=== PATIENT | male | born 1935 | race Hispanic/Latino ===

== ENCOUNTER 2018-01-23 13:43 | Emergency (ER) | payer MEDICARE, OTHER ==
[~2018-01-23 13:43] MED LIST: AMLO5TAB2 PO; ASPI-555 PO; CLOP75TA14 PO; METO-391 PO; SIMV20TA6 PO
[2018-01-23] MEDS ORDERED: IOPAMIDOL-370 100 ML VIAL IV ONE (13:54)
[2018-01-23 14:12] LABS: BASOPHILS % (AUTO) 4.1 % (0.0-5.0); EOSINOPHILS % (AUTO) 3.5 % (0.0-8.0); LYMPHOCYTES % (AUTO) 16.3 % (21.0-51.0); MEAN CORPUSCULAR HEMOGLOBIN 33.9 pg (27.0-33.0); MEAN CORPUSCULAR HGB CONC 34.5 g/dL (32.0-36.0); MEAN CORPUSCULAR VOLUME 98.3 fL (79-99); NEUTROPHILS % (AUTO) 68.1 % (40.0-77.0); NUCLEATED RED BLOOD CELLS 0.1 % (0.0-0.19); PLATELET COUNT (AUTO) 211 K/uL (130-400); RED BLOOD CELL COUNT(AUTO) 4.68 MIL/uL (4.50-6.20); RED CELL DISTRIBUTION WIDTH 13.6 % (11.0-15.5); WHITE BLOOD COUNT (AUTO) 8.5 K/uL (4.8-10.8)
[2018-01-23 14:16] LABS: INR 0.98 (0.85-1.15); PARTIAL THROMBOPLASTIN TIME 25.2 SEC (26.3-35.5); PROTHROMBIN TIME 10.3 SEC (9.6-11.6)
[2018-01-23 14:17] LABS: POTASSIUM 3.7 mmol/L (3.5-5.1)
[2018-01-23 14:22] LABS: ALBUMIN 3.4 g/dL (3.5-5.0); BILIRUBIN,TOTAL 0.5 mg/dL (0.2-1.0); TOTAL PROTEIN, SERUM 7.8 g/dL (6.0-8.3)
[2018-01-23] MEDS ORDERED: MORPHINE SULFATE 2 MG/ML 1ML SYG ONE (14:58)
[2018-01-23] MEDS ORDERED: ONDANSETRON HCL 4 MG/2 ML VIAL ONE (14:58)
[2018-01-23] MEDS ORDERED: SODIUM CHLORIDE 0.9% 500ML 500 ML IV ONE (14:59)
[2018-01-23 15:27] LABS: APPEARANCE,URINE Clear (CLEAR); BILIRUBIN,URINE Negative (NEGATIVE); COLOR,URINE Yellow (YELLOW); GLUCOSE, URINE (UA) Negative (NEGATIVE); KETONES,URINE Negative (NEGATIVE); LEUKOCYTE ESTERASE ,URINE Negative (NEGATIVE); NITRATE,URINE Negative (NEGATIVE); OCCULT BLOOD,URINE Small (NEGATIVE); PH,URINE 7.5 (5.0-8.0); PROTEIN,URINE Negative (NEGATIVE); UROBILINOGEN,URINE 0.2 mg/dL (0.2-1.0)
[2018-01-23 15:44] LABS: BACTERIA,URINE Rare /HPF (None Seen); WBC,URINE 0-1 /HPF (0-1)
== END 2018-01-23 16:57 | disposition home or self-care (01) ==
LOC: EDH 13:43
DX: S20.212A Contusion of left front wall of thorax, initial encounter (principal); S10.83XA Contusion of other specified part of neck, initial encounter; S50.02XA Contusion of left elbow, initial encounter; S80.02XA Contusion of left knee, initial encounter; S80.12XA Contusion of left lower leg, initial encounter; V59.49XA Driver of pick-up truck or van injured in collision with other motor vehicles in traffic accident, initial encounter; Y93.89 Activity, other specified; Y92.89 Other specified places as the place of occurrence of the external cause; Y99.8 Other external cause status
CPT/HCPCS: 36415; 70450; 71260; 72125; 73080; 73562; 73590; 74177; 80053; 81001; 84484; 85025; 85610; 85730; 93005; 96374; 96375; 99285; J2405; J7040; Q9967

== ENCOUNTER → 2018-08-03 | Outpatient (CLI) | payer MEDICARE ==
[~2018-08-03] MED LIST changes: -AMLO5TAB2 PO; +AMLO5TAB7 PO
== END | disposition home or self-care (01) ==
LOC: SHCH 09:40
PROVIDERS: ATTEND Internal Medicine Cardiovascular Disease
DX: I65.23 Occlusion and stenosis of bilateral carotid arteries (principal)
CPT/HCPCS: 93880

== ENCOUNTER 2019-02-14 08:42 | Emergency (ER) | payer MEDICARE ==
[~2019-02-14 08:42] MED LIST changes: -AMLO5TAB7 PO; +AMLO5TAB9 PO
[2019-02-14] MEDS ORDERED: ASPIRIN 325 MG TABLET ONE (09:02)
[2019-02-14 09:03] LABS: BASOPHILS % (AUTO) 0.7 % (0.0-5.0); EOSINOPHILS % (AUTO) 3.7 % (0.0-8.0); HEMATOCRIT 46.2 % (42-54); LYMPHOCYTES % (AUTO) 30.4 % (21.0-51.0); MEAN CORPUSCULAR HEMOGLOBIN 33.8 pg (27.0-33.0); MEAN CORPUSCULAR VOLUME 99.3 fL (79-99); MONOCYTES % (AUTO) 10.8 % (3.0-13.0); NEUTROPHILS % (AUTO) 54.4 % (40.0-77.0); NUCLEATED RED BLOOD CELLS 0.1 % (0.0-0.19); PLATELET COUNT (AUTO) 192 K/uL (130-400); RED BLOOD CELL COUNT(AUTO) 4.65 MIL/uL (4.50-6.20); RED CELL DISTRIBUTION WIDTH 13.7 % (11.0-15.5); WHITE BLOOD COUNT (AUTO) 5.8 K/uL (4.8-10.8)
[2019-02-14] MEDS ORDERED: NITROGLYCERIN 1GM/1 INCH PACKET TD ONE (09:04)
[2019-02-14 09:17] LABS: CREATININE 0.9 mg/dL (0.5-1.5); POTASSIUM 4.1 mmol/L (3.5-5.1)
[2019-02-14 09:20] LABS: INR 0.98 (0.85-1.15); PARTIAL THROMBOPLASTIN TIME 27.3 SEC (26.3-35.5); PROTHROMBIN TIME 10.3 SEC (9.6-11.6)
[2019-02-14 09:35] LABS: ALBUMIN 3.7 g/dL (3.5-5.0); BILIRUBIN,TOTAL 0.9 mg/dL (0.2-1.0); TOTAL PROTEIN, SERUM 7.8 g/dL (6.0-8.3)
[2019-02-14 12:04] LABS: APPEARANCE,URINE Clear (CLEAR); BILIRUBIN,URINE Negative (NEGATIVE); COLOR,URINE Yellow (YELLOW); GLUCOSE, URINE (UA) Negative (NEGATIVE); KETONES,URINE Negative (NEGATIVE); LEUKOCYTE ESTERASE ,URINE Negative (NEGATIVE); NITRATE,URINE Negative (NEGATIVE); OCCULT BLOOD,URINE Negative (NEGATIVE); PROTEIN,URINE Negative (NEGATIVE); UROBILINOGEN,URINE 0.2 mg/dL (0.2-1.0)
== END 2019-02-14 14:10 | disposition home or self-care (01) ==
LOC: EDH 08:42
DX: M25.512 Pain in left shoulder (principal); I10 Essential (primary) hypertension; I25.2 Old myocardial infarction; E78.00 Pure hypercholesterolemia, unspecified; Z95.1 Presence of aortocoronary bypass graft
CPT/HCPCS: 36415; 71045; 80053; 81003; 82550; 83874; 84484; 85025; 85610; 85730; 93005

== ENCOUNTER → 2020-04-11 | Outpatient (CLI) | payer MEDICARE ==
[~2020-04-11] MED LIST changes: -ASPI-555 PO; +ASPI-556 PO; +SIMV-43 PO; -SIMV20TA6 PO
== END | disposition home or self-care (01) ==
LOC: SHCH 09:43
PROVIDERS: ATTEND Internal Medicine Cardiovascular Disease
DX: I10 Essential (primary) hypertension (principal); I65.23 Occlusion and stenosis of bilateral carotid arteries
CPT/HCPCS: 93306; 93880

== ENCOUNTER → 2020-11-29 | Outpatient (CLI) | payer MEDICARE ==
[~2020-11-29] MED LIST changes: +AMLO-257 PO; -AMLO5TAB9 PO
== END | disposition home or self-care (01) ==
LOC: RAH 10:07
PROVIDERS: ATTEND Urology
DX: N40.0 Benign prostatic hyperplasia without lower urinary tract symptoms (principal); R39.198 Other difficulties with micturition; R31.29 Other microscopic hematuria
CPT/HCPCS: 76770

== ENCOUNTER → 2021-03-18 | Outpatient (CLI) | payer MEDICARE | END | disposition home or self-care (01) | LOC: SHCH 11:20 | PROVIDERS: ATTEND Internal Medicine Cardiovascular Disease | DX: I65.23 Occlusion and stenosis of bilateral carotid arteries (principal) | CPT/HCPCS: 93880 ==

== ENCOUNTER 2022-03-19 03:14 | Observation (INO) | payer MEDICARE ==
[~2022-03-19] VITALS: Ht 170.2 cm; Wt 79.0 kg
[2022-03-19 03:57] LABS: BASOPHILS % (AUTO) 0.6 % (0.0-5.0); EOSINOPHILS % (AUTO) 4.4 % (0.0-8.0); HEMATOCRIT 43.3 % (42-54); LYMPHOCYTES % (AUTO) 34.3 % (21.0-51.0); MEAN CORPUSCULAR HEMOGLOBIN 33.1 pg (27.0-33.0); MEAN CORPUSCULAR HGB CONC 34.2 g/dL (32.0-36.0); MEAN CORPUSCULAR VOLUME 96.9 fL (79-99); MONOCYTES % (AUTO) 13.1 % (3.0-13.0); NEUTROPHILS % (AUTO) 47.2 % (40.0-77.0); PLATELET COUNT (AUTO) 163 K/uL (130-400); RED BLOOD CELL COUNT(AUTO) 4.47 MIL/uL (4.50-6.20); RED CELL DISTRIBUTION WIDTH 13.8 % (11.0-15.5)
[2022-03-19 04:05] LABS: CREATININE 0.9 mg/dL (0.5-1.5)
[2022-03-19 04:06] LABS: INR 0.94 (0.85-1.15); PROTHROMBIN TIME 10.3 SEC (9.6-11.6)
[2022-03-19 04:08] LABS: PARTIAL THROMBOPLASTIN TIME 26.2 SEC (26.3-35.5)
[2022-03-19 04:09] LABS: ALBUMIN 3.2 g/dL (3.5-5.0); MAGNESIUM 2.1 mg/dL (1.80-2.40); TOTAL PROTEIN, SERUM 7.5 g/dL (6.0-8.3)
[2022-03-19 04:17] LABS: B-TYPE NATRIURETIC PEPTIDE 60 pg/mL (0-100)
[2022-03-19] MEDS ORDERED: ASPIRIN 325MG TAB PO ONE (04:30)
[2022-03-19] MEDS ORDERED: NITROGLYCERIN 1GM OINT 1 INCH/1GM TD ONE (04:30)
[2022-03-19] MEDS ORDERED: ONDANSETRON 4MG INJ IV PRN (05:30)
[2022-03-19] MEDS ORDERED: NITROGLYCERIN 0.4 MG SL TAB SL PRN (05:30)
[2022-03-19] MEDS ORDERED: CYCLOBENZAPRINE HCL 10 MG TABLET PO ONE (05:30)
[2022-03-19] MEDS ORDERED: MORPHINE 4 MG SYG IV PRN (05:30)
[2022-03-19] MEDS ORDERED: HYDROCODONE/ACETAMINOPHEN 5/325 MG TAB PO PRN (05:30)
[2022-03-19] MEDS ORDERED: HYDROCODONE/ACETAMINOPHEN 5/325 MG TAB PO ONE (05:30)
[2022-03-19] MEDS: FAMOTIDINE 20MG TAB PO SCH (08:10)
[2022-03-19] MEDS: ENOXAPARIN SODIUM 40 MG/0.4 ML SYRINGE SQ SCH (08:11)
[2022-03-19] MEDS ORDERED: ASPIRIN 81MG CHEW TAB PO SCH (09:00)
[2022-03-19] MEDS: LOSARTAN 25 MG TABLET PO SCH (09:32)
[2022-03-19 10:00] VITALS: BP 145/64
[2022-03-19 11:30] VITALS: BP 139/61
[2022-03-19] MEDS ORDERED: ACETAMINOPHEN 500 MG TABLET PO PRN (14:00)
[2022-03-19 17:58] VITALS: BP 130/56
[2022-03-19] MEDS ORDERED: FEXO180T94 PO (18:20)
[2022-03-19 20:00] VITALS: BP 133/55
[2022-03-19] MEDS: SIMVASTATIN 20 MG TABLET PO SCH (23:00)
[2022-03-19 23:35] VITALS: BP 147/65
[2022-03-20 04:32] VITALS: BP 145/74
[2022-03-20 05:14] LABS: BASOPHILS % (AUTO) 0.6 % (0.0-5.0); EOSINOPHILS % (AUTO) 4.2 % (0.0-8.0); HEMATOCRIT 40.8 % (42-54); LYMPHOCYTES % (AUTO) 24.8 % (21.0-51.0); MEAN CORPUSCULAR HGB CONC 34.1 g/dL (32.0-36.0); MEAN CORPUSCULAR VOLUME 96.9 fL (79-99); MONOCYTES % (AUTO) 13.7 % (3.0-13.0); NEUTROPHILS % (AUTO) 56.4 % (40.0-77.0); PLATELET COUNT (AUTO) 151 K/uL (130-400); RED BLOOD CELL COUNT(AUTO) 4.21 MIL/uL (4.50-6.20); RED CELL DISTRIBUTION WIDTH 13.8 % (11.0-15.5); WHITE BLOOD COUNT (AUTO) 6.2 K/uL (4.8-10.8)
[2022-03-20 05:26] LABS: CREATININE 0.8 mg/dL (0.5-1.5); PHOSPHORUS 3.5 mg/dL (2.5-4.9)
[2022-03-20] MEDS ORDERED: REGADENOSON 0.4 MG/5 ML PF SYG IVP SCH (07:30)
[2022-03-20 08:00] VITALS: BP 137/77
[2022-03-20] MEDS: ENOXAPARIN SODIUM 40 MG/0.4 ML SYRINGE SQ SCH (08:16)
[2022-03-20] MEDS: FAMOTIDINE 20MG TAB PO SCH ×2 (08:16→09:30)
[2022-03-20] MEDS: LOSARTAN 25 MG TABLET PO SCH (09:30)
[2022-03-20] MEDS: ASPIRIN 325MG EC TAB PO SCH (09:30)
[2022-03-20 16:00] VITALS: BP 126/74
[2022-03-20 20:16] VITALS: BP 135/79
[2022-03-20] MEDS: SIMVASTATIN 20 MG TABLET PO SCH (20:29)
[2022-03-21 00:01] VITALS: BP 122/61
[2022-03-21 04:22] VITALS: BP 132/73
[2022-03-21 07:17] LABS: BASOPHILS % (AUTO) 0.5 % (0.0-5.0); EOSINOPHILS % (AUTO) 4.1 % (0.0-8.0); HEMATOCRIT 44.7 % (42-54); LYMPHOCYTES % (AUTO) 32.8 % (21.0-51.0); MEAN CORPUSCULAR HEMOGLOBIN 33.1 pg (27.0-33.0); MEAN CORPUSCULAR HGB CONC 34.2 g/dL (32.0-36.0); MEAN CORPUSCULAR VOLUME 96.8 fL (79-99); MONOCYTES % (AUTO) 12.4 % (3.0-13.0); NEUTROPHILS % (AUTO) 49.9 % (40.0-77.0); PLATELET COUNT (AUTO) 155 K/uL (130-400); RED BLOOD CELL COUNT(AUTO) 4.62 MIL/uL (4.50-6.20); RED CELL DISTRIBUTION WIDTH 13.8 % (11.0-15.5); WHITE BLOOD COUNT (AUTO) 6.5 K/uL (4.8-10.8)
[2022-03-21 07:26] LABS: CREATININE 0.9 mg/dL (0.5-1.5); POTASSIUM 3.8 mmol/L (3.5-5.1)
[2022-03-21] MEDS ORDERED: LOSA25TA41 PO (08:48)
[2022-03-21] MEDS: ENOXAPARIN SODIUM 40 MG/0.4 ML SYRINGE SQ SCH (09:00)
[2022-03-21] MEDS: FAMOTIDINE 20MG TAB PO SCH (09:05)
[2022-03-21] MEDS: ASPIRIN 325MG EC TAB PO SCH (09:05)
[2022-03-21] MEDS: LOSARTAN 25 MG TABLET PO SCH (09:05)
[2022-03-21 09:21] VITALS: BP 134/74
[2022-03-21 12:45] VITALS: BP 138/85
== END 2022-03-21 15:00 | disposition home or self-care (01) ==
LOC: EDH 03:14 → INTOOBSV 05:01 → EDHIP 05:01 → 3DH 10:06
PROVIDERS: ADMIT Hospitalist; ATTEND Hospitalist
DX: R07.89 Other chest pain (principal); I25.10 Atherosclerotic heart disease of native coronary artery without angina pectoris; I10 Essential (primary) hypertension; I25.2 Old myocardial infarction; E66.9 Obesity, unspecified; E78.5 Hyperlipidemia, unspecified; E78.00 Pure hypercholesterolemia, unspecified; R54 Age-related physical debility; R00.1 Bradycardia, unspecified; Z79.899 Other long term (current) drug therapy; Z98.890 Other specified postprocedural states; Z95.1 Presence of aortocoronary bypass graft; Z79.82 Long term (current) use of aspirin; Z79.02 Long term (current) use of antithrombotics/antiplatelets; Z68.27 Body mass index [BMI] 27.0-27.9, adult
CPT/HCPCS: 96372; 99285; 83735 ×2; 84484 ×4; 80053; 83880; 85025 ×3; 85610; 85730; 36415 ×3; 71045; 93005; 84100; 80048 ×2; 93017; 78452; 93306; 93356; G0378 ×44; J1650 ×2; J2785; A9500 ×2; 96374

== ENCOUNTER 2022-05-09 07:55 | Day surgery (SDC) | payer MEDICARE ==
[2022-05-07 09:56] VITALS: BP 152/72
[2022-05-07 11:19] LABS: CREATININE 0.9 mg/dL (0.5-1.5); POTASSIUM 3.8 mmol/L (3.5-5.1)
[2022-05-07 11:26] LABS: INR 0.95 (0.85-1.15); PROTHROMBIN TIME 10.4 SEC (9.6-11.6)
[2022-05-07 11:28] LABS: PARTIAL THROMBOPLASTIN TIME 27.3 SEC (26.3-35.5)
[2022-05-07 11:31] LABS: BASOPHILS % (AUTO) 0.7 % (0.0-5.0); EOSINOPHILS % (AUTO) 4.6 % (0.0-8.0); HEMATOCRIT 43.6 % (42-54); LYMPHOCYTES % (AUTO) 24.7 % (21.0-51.0); MEAN CORPUSCULAR HEMOGLOBIN 33.6 pg (27.0-33.0); MEAN CORPUSCULAR HGB CONC 34.2 g/dL (32.0-36.0); MEAN CORPUSCULAR VOLUME 98.2 fL (79-99); MONOCYTES % (AUTO) 11.9 % (3.0-13.0); NEUTROPHILS % (AUTO) 57.8 % (40.0-77.0); PLATELET COUNT (AUTO) 176 K/uL (130-400); RED BLOOD CELL COUNT(AUTO) 4.44 MIL/uL (4.50-6.20); RED CELL DISTRIBUTION WIDTH 13.2 % (11.0-15.5); WHITE BLOOD COUNT (AUTO) 5.9 K/uL (4.8-10.8)
[2022-05-07 11:33] LABS: APPEARANCE,URINE CLEAR (CLEAR); BILIRUBIN,URINE NEGATIVE (NEGATIVE); COLOR,URINE YELLOW (YELLOW); GLUCOSE, URINE (UA) NEGATIVE (NEGATIVE); KETONES,URINE NEGATIVE (NEGATIVE); LEUKOCYTE ESTERASE ,URINE NEGATIVE (NEGATIVE); NITRATE,URINE NEGATIVE (NEGATIVE); OCCULT BLOOD,URINE TRACE-INTACT (NEGATIVE); PROTEIN,URINE NEGATIVE (NEGATIVE); UROBILINOGEN,URINE 0.2 mg/dL (0.2-1.0)
[2022-05-07 11:40] LABS: BACTERIA,URINE Rare /HPF (None Seen); RBC,URINE 0-1 /HPF (0-1); SQUAMOUS EPITHELIAL CELL,UR Rare /HPF (0-2); WBC,URINE 0-1 /HPF (0-1)
[2022-05-07 11:52] LABS: B-TYPE NATRIURETIC PEPTIDE 60 pg/mL (0-100)
[~2022-05-09] VITALS: Ht 165.1 cm; Wt 78.0 kg
[2022-05-09] VITALS (11 sets, daily range): BP systolic 109–156; BP diastolic 57–77
[~2022-05-09 07:55] MED LIST changes: +0.9% NACL 500ML IV.SOLN 500 ML IV SCH; -AMLO-257 PO; +ASPI-1026 PO; -ASPI-556 PO; -CLOP75TA14 PO; +FEXO180T94 PO; +LOSA25TA41 PO; -METO-391 PO; +METO-408 PO; +OMEP40CA21 PO
[2022-05-09] MEDS ORDERED: MIDAZOLAM HCL 1 MG/ML 2ML VIAL ONE (10:36)
[2022-05-09] MEDS ORDERED: LIDOCAINE PF 100MG/5ML (2%) SYRINGE 5ML ONE (10:38)
[2022-05-09] MEDS ORDERED: LIDOCAINE HCL-MPF 2% 5ML VIAL ONE (10:38)
[2022-05-09] MEDS ORDERED: IOHEXOL 350 MG/ML 100ML INFUS..BTL IV ONE (10:43)
[2022-05-09] MEDS ORDERED: HEPARIN 10,000 UNIT/10ML (1,000 UNIT/ML) VIAL ONE (10:43)
[2022-05-09] MEDS ORDERED: IOHEXOL-350 50ML VIAL IV ONE (10:43)
[2022-05-09] MEDS ORDERED: NICARDIPINE 25MG INJ IV ONE (10:43)
[2022-05-09] MEDS ORDERED: MEPERIDINE-PF 25 MG/ML SYG ONE ×2 (10:43→11:02)
[2022-05-09] MEDS ORDERED: 0.9%NACL 1000ML 1,000 ML IV SCH (11:30)
== END 2022-05-09 15:30 | disposition home or self-care (01) ==
LOC: DAH 07:55
PROVIDERS: ATTEND Internal Medicine Cardiovascular Disease
DX: I25.119 Atherosclerotic heart disease of native coronary artery with unspecified angina pectoris (principal); I10 Essential (primary) hypertension; I25.2 Old myocardial infarction; E11.9 Type 2 diabetes mellitus without complications; Z79.82 Long term (current) use of aspirin; Z79.01 Long term (current) use of anticoagulants; Z79.899 Other long term (current) drug therapy; Z95.5 Presence of coronary angioplasty implant and graft
CPT/HCPCS: 80048; 83880; 85025; 85610; 85730; 81001; 36415; 71045; 93005; 93458; C1769; C1894; J2001; J3490 ×2; J1644 ×2; J2250; J2175 ×2; Q9967; A4215; A4222; A4221; A4663; A4216; A4606; Q9965; A4223 ×3; 96374; 96375; 99156; 99157

== ENCOUNTER 2022-06-15 13:15 | Emergency (ER) | payer MEDICARE ==
[~2022-06-15] VITALS: Ht 172.7 cm; Wt 79.4 kg
[~2022-06-15 13:15] MED LIST changes: -0.9% NACL 500ML IV.SOLN 500 ML IV SCH
[2022-06-15 13:30] LABS: BASOPHILS % (AUTO) 0.7 % (0.0-5.0); EOSINOPHILS % (AUTO) 3.5 % (0.0-8.0); HEMATOCRIT 41.5 % (42-54); LYMPHOCYTES % (AUTO) 28.8 % (21.0-51.0); MEAN CORPUSCULAR HEMOGLOBIN 33.3 pg (27.0-33.0); MEAN CORPUSCULAR HGB CONC 34.5 g/dL (32.0-36.0); MEAN CORPUSCULAR VOLUME 96.5 fL (79-99); MONOCYTES % (AUTO) 12.6 % (3.0-13.0); NEUTROPHILS % (AUTO) 54.1 % (40.0-77.0); PLATELET COUNT (AUTO) 178 K/uL (130-400); RED CELL DISTRIBUTION WIDTH 12.8 % (11.0-15.5)
[2022-06-15 13:38] LABS: POTASSIUM 3.8 mmol/L (3.5-5.1)
[2022-06-15 13:42] LABS: ALBUMIN 3.4 g/dL (3.5-5.0); TOTAL PROTEIN, SERUM 7.7 g/dL (6.0-8.3)
[2022-06-15 14:00] LABS: B-TYPE NATRIURETIC PEPTIDE 76 pg/mL (0-100)
[2022-06-15] MEDS ORDERED: LIDOCAINE HCL 2% VISCOUS 15 ML UDCUP PO ONE (14:00)
[2022-06-15] MEDS ORDERED: DICYCLOMINE HCL 10 MG/5 ML ML PO ONE ×2 (14:00→14:19)
[2022-06-15] MEDS ORDERED: MAG/ALUM/SIMETH 30 ML UDCUP PO ONE (14:00)
[2022-06-15] MEDS ORDERED: MAG/ALUM/SIMETH 30 ML UDCUP ONE (14:19)
[2022-06-15] MEDS ORDERED: LIDOCAINE HCL 2% VISCOUS 15 ML UDCUP ONE (14:19)
[2022-06-15 14:40] LABS: APPEARANCE,URINE CLEAR (CLEAR); BILIRUBIN,URINE NEGATIVE (NEGATIVE); COLOR,URINE LIGHT-YELLOW (YELLOW); GLUCOSE, URINE (UA) NEGATIVE (NEGATIVE); KETONES,URINE NEGATIVE (NEGATIVE); LEUKOCYTE ESTERASE ,URINE NEGATIVE Leu/uL (NEGATIVE); NITRATE,URINE NEGATIVE (NEGATIVE); PH,URINE 5.5 (5.0-8.0); PROTEIN,URINE NEGATIVE (NEGATIVE); UROBILINOGEN,URINE 0.2 mg/dL (0.2-1.0)
[2022-06-15 14:47] LABS: MUCUS,URINE RARE LPF (None Seen); SQUAMOUS EPITHELIAL CELL,UR RARE /HPF (0-2); WBC,URINE 0-1 /HPF (0-1)
[2022-06-15 16:01] VITALS: BP 138/68
== END 2022-06-15 16:07 | disposition home or self-care (01) ==
LOC: EDH 13:15
DX: R07.89 Other chest pain (principal); K30 Functional dyspepsia; E10.9 Type 1 diabetes mellitus without complications; E78.00 Pure hypercholesterolemia, unspecified; I10 Essential (primary) hypertension; Z79.899 Other long term (current) drug therapy; Z79.82 Long term (current) use of aspirin
CPT/HCPCS: 36415; 71045; 80053; 81001; 83735; 83880; 84484; 85025; 93005

== ENCOUNTER → 2022-08-02 | Outpatient (CLI) | payer MEDICARE | END | disposition home or self-care (01) | LOC: SHCH 14:12 | PROVIDERS: ATTEND Internal Medicine Cardiovascular Disease | DX: I87.2 Venous insufficiency (chronic) (peripheral) (principal); M79.605 Pain in left leg; R60.0 Localized edema; I10 Essential (primary) hypertension | CPT/HCPCS: 93970 ==

== ENCOUNTER → 2022-09-18 | Outpatient (CLI) | payer MEDICARE ==
[2022-09-18 16:30] LABS: CREATININE 1.8 mg/dL (0.5-1.5); POTASSIUM 3.9 mmol/L (3.5-5.1)
== END | disposition home or self-care (01) ==
LOC: LAB 12:44
PROVIDERS: ATTEND Physician Assistant
DX: I10 Essential (primary) hypertension (principal); E78.5 Hyperlipidemia, unspecified
CPT/HCPCS: 36415; 80048; 83880

== ENCOUNTER 2022-09-28 12:27 | Emergency (ER) | payer MEDICARE ==
[~2022-09-28] VITALS: Ht 167.6 cm; Wt 77.1 kg
[2022-09-28 13:59] LABS: BASOPHILS % (AUTO) 0.2 % (0.0-5.0); EOSINOPHILS % (AUTO) 0.9 % (0.0-8.0); HEMATOCRIT 39.9 % (42-54); LYMPHOCYTES % (AUTO) 9.7 % (21.0-51.0); MEAN CORPUSCULAR HEMOGLOBIN 33.4 pg (27.0-33.0); MEAN CORPUSCULAR HGB CONC 33.8 g/dL (32.0-36.0); MEAN CORPUSCULAR VOLUME 98.8 fL (79-99); MONOCYTES % (AUTO) 3.7 % (3.0-13.0); NEUTROPHILS % (AUTO) 84.2 % (40.0-77.0); PLATELET COUNT (AUTO) 174 K/uL (130-400); RED BLOOD CELL COUNT(AUTO) 4.04 MIL/uL (4.50-6.20); RED CELL DISTRIBUTION WIDTH 14.2 % (11.0-15.5)
[2022-09-28 14:19] LABS: CREATININE 1.3 mg/dL (0.5-1.5); POTASSIUM 3.4 mmol/L (3.5-5.1)
[2022-09-28 14:30] LABS: ALBUMIN 2.5 g/dL (3.5-5.0); TOTAL PROTEIN, SERUM 6.2 g/dL (6.0-8.3)
[2022-09-28 14:59] LABS: B-TYPE NATRIURETIC PEPTIDE 79 pg/mL (0-100)
[2022-09-28 19:18] VITALS: BP 132/66
[2022-09-28] MEDS ORDERED: POTASSIUM BICARB/CIT AC 25 MEQ TABLET.EFF PO ONE (20:00)
== END 2022-09-28 19:59 | disposition home or self-care (01) ==
LOC: EDH 12:27
DX: E87.6 Hypokalemia (principal); R60.0 Localized edema; E78.00 Pure hypercholesterolemia, unspecified; I10 Essential (primary) hypertension; E10.9 Type 1 diabetes mellitus without complications; Z79.82 Long term (current) use of aspirin; Z79.899 Other long term (current) drug therapy; Z95.5 Presence of coronary angioplasty implant and graft
CPT/HCPCS: 36415; 71045; 74176; 80053; 82550; 83874; 83880; 84484; 85025; 93005; 93925; 93970

== ENCOUNTER → 2022-11-24 | Outpatient (CLI) | payer MEDICARE ==
[~2022-11-24] MED LIST changes: +ACET-66 PO
[2022-11-24 16:23] LABS: BASOPHILS % (AUTO) 0.8 % (0.0-5.0); EOSINOPHILS % (AUTO) 1.4 % (0.0-8.0); HEMATOCRIT 43.6 % (42-54); LYMPHOCYTES % (AUTO) 30.9 % (21.0-51.0); MEAN CORPUSCULAR HEMOGLOBIN 34.1 pg (27.0-33.0); MEAN CORPUSCULAR HGB CONC 32.8 g/dL (32.0-36.0); MEAN CORPUSCULAR VOLUME 104.1 fL (79-99); MONOCYTES % (AUTO) 9.8 % (3.0-13.0); NEUTROPHILS % (AUTO) 56.3 % (40.0-77.0); PLATELET COUNT (AUTO) 201 K/uL (130-400); RED BLOOD CELL COUNT(AUTO) 4.19 MIL/uL (4.50-6.20); RED CELL DISTRIBUTION WIDTH 14.7 % (11.0-15.5); WHITE BLOOD COUNT (AUTO) 6.6 K/uL (4.8-10.8)
[2022-11-24 16:44] LABS: MAGNESIUM 1.8 mg/dL (1.80-2.40); POTASSIUM 4.2 mmol/L (3.5-5.1); TOTAL PROTEIN, SERUM 6.7 g/dL (6.0-8.3)
== END | disposition home or self-care (01) ==
LOC: LAB 11:39
PROVIDERS: ATTEND Internal Medicine Cardiovascular Disease
DX: I10 Essential (primary) hypertension (principal); E78.5 Hyperlipidemia, unspecified
CPT/HCPCS: 36415; 80053; 83735; 83880; 85025

== ENCOUNTER → 2023-07-01 | Outpatient (CLI) | payer MEDICARE ==
[2023-07-01 11:33] LABS: BASOPHILS # (AUTO) 0.03 K/uL (0.00-0.20); BASOPHILS % (AUTO) 0.4 % (0.0-5.0); EOSINOPHILS # (AUTO) 0.12 K/uL (0.00-0.70); EOSINOPHILS % (AUTO) 1.7 % (0.0-8.0); HEMATOCRIT 41.8 % (42-54); IMMATURE GRANULOCYTE ABSOLUTE 0.03 K/uL (0-1); LYMPHOCYTES # (AUTO) 2.6 K/uL (1.0-4.8); MEAN CORPUSCULAR HEMOGLOBIN 33.4 pg (27.0-33.0); MEAN CORPUSCULAR VOLUME 98.4 fL (79-99); MONOCYTES # (AUTO) 0.8 K/uL (0.1-1.0); MONOCYTES % (AUTO) 11.6 % (3.0-13.0); NEUTROPHILS # (AUTO) 3.3 K/uL (1.8-7.7); NEUTROPHILS % (AUTO) 47.9 % (40.0-77.0); PLATELET COUNT (AUTO) 230 K/uL (130-400); RED BLOOD CELL COUNT(AUTO) 4.25 MIL/uL (4.50-6.20); RED CELL DISTRIBUTION WIDTH 13.7 % (11.0-15.5); WHITE BLOOD COUNT (AUTO) 6.9 K/uL (4.8-10.8)
[2023-07-01 11:56] LABS: ALBUMIN 3.4 g/dL (3.5-5.0); BILIRUBIN,TOTAL 0.8 mg/dL (0.2-1.0); MAGNESIUM 2.1 mg/dL (1.80-2.40); POTASSIUM 4.4 mmol/L (3.5-5.1); T4 (THYROXINE) 8.5 ug/dL (4.7-13.3); THYROID STIMULATING HORMONE 3.3 uIU/mL (0.36-3.74); TOTAL PROTEIN, SERUM 7.5 g/dL (6.0-8.3)
== END | disposition home or self-care (01) ==
LOC: LAB 10:09
PROVIDERS: ATTEND Internal Medicine Cardiovascular Disease
DX: I10 Essential (primary) hypertension (principal); E78.5 Hyperlipidemia, unspecified; Z79.899 Other long term (current) drug therapy
CPT/HCPCS: 36415; 80053; 80061; 83735; 84436; 84443; 84479; 85025

== ENCOUNTER 2024-12-30 14:55 | Emergency (ER) | payer OTHER, MEDICARE ==
[~2024-12-30] VITALS: Ht 162.6 cm; Wt 63.5 kg
[~2024-12-30 14:55] MED LIST changes: +LACT10SO85 PO
[2024-12-30 15:13] VITALS: PULSE 59; RESP 18
[2024-12-30] MEDS: IpraTROPium/alBUTERol SULFATE 3 ML SOLUTION IH ONE (15:14)
--- NOTE | 2024-12-30 15:17 | EKG ---
[facility] Test Date: 2024-12-30 Test Time: 15:13:06 Pat Name: KUNAL CALDWELL Department: ED Room: Gender: M [employer]: [id number] : 1935 Requested By: RAKEL LUNDBERG Order Number: [id number] Reading MD: Kunal Man Measurements Intervals [place] Rate: 55 P: -16 [place]: 221 QRS: 39 QRSD: 102 T: 83 QT: 449 QTc: 428 Interpretive Statements Sinus rhythm Prolonged [place] interval Low voltage, extremity leads Compared to ECG 09/28/2022 13:25:43 First degree AV block now present Electronically Signed On 12-30-2024 15:53:02 CDT by Kunal Man Please click the below link to view image of tracing.
[2024-12-30 15:20] LABS: BASOPHILS # (AUTO) 0.05 K/uL (0.00-0.20); BASOPHILS % (AUTO) 0.6 % (0.0-5.0); EOSINOPHILS # (AUTO) 0.53 K/uL (0.00-0.70); EOSINOPHILS % (AUTO) 6.4 % (0.0-8.0); HEMATOCRIT 40.4 % (42-54); IMMATURE GRANULOCYTE ABSOLUTE 0.03 K/uL (0-1); LYMPHOCYTES # (AUTO) 1.6 K/uL (1.0-4.8); LYMPHOCYTES % (AUTO) 19.5 % (21.0-51.0); MEAN CORPUSCULAR HEMOGLOBIN 33.5 pg (27.0-33.0); MEAN CORPUSCULAR HGB CONC 33.4 g/dL (32.0-36.0); MEAN CORPUSCULAR VOLUME 100.2 fL (79-99); MONOCYTES % (AUTO) 11.7 % (3.0-13.0); NEUTROPHILS # (AUTO) 5.1 K/uL (1.8-7.7); NEUTROPHILS % (AUTO) 61.4 % (40.0-77.0); PLATELET COUNT (AUTO) 187 K/uL (130-400); RED BLOOD CELL COUNT(AUTO) 4.03 MIL/uL (4.50-6.20); RED CELL DISTRIBUTION WIDTH 13.8 % (11.0-15.5); WHITE BLOOD COUNT (AUTO) 8.3 K/uL (4.8-10.8)
[2024-12-30 15:26] LABS: POTASSIUM 4.5 mmol/L (3.5-5.1)
[2024-12-30 15:34] LABS: MAGNESIUM 2.1 mg/dL (1.80-2.40)
[2024-12-30 15:55] LABS: B-TYPE NATRIURETIC PEPTIDE 165 pg/mL (0-100)
--- NOTE | 2024-12-30 16:48 | HMCIMG ---
CHEST 1VW HISTORY: Shortness of breath COMPARISON: 09/28/2022 FINDINGS: A frontal projection of the chest was obtained. Mild bilateral pulmonary infiltrates are seen may be related to mild pulmonary vascular congestion with possible superimposed pneumonitis. The heart is borderline enlarged. Degenerative changes are seen. No evidence of aortic calcification is seen. IMPRESSION: 1. Mild bilateral pulmonary infiltrates are seen may be related to mild pulmonary vascular congestion with possible superimposed pneumonitis.
[2024-12-30 17:59] LABS: APPEARANCE,URINE CLEAR (CLEAR); BILIRUBIN,URINE NEGATIVE (NEGATIVE); COLOR,URINE LIGHT-YELLOW (YELLOW); GLUCOSE, URINE (UA) NEGATIVE (NEGATIVE); KETONES,URINE NEGATIVE (NEGATIVE); LEUKOCYTE ESTERASE ,URINE NEGATIVE Leu/uL (NEGATIVE); NITRATE,URINE NEGATIVE (NEGATIVE); OCCULT BLOOD,URINE NEGATIVE (NEGATIVE); PROTEIN,URINE NEGATIVE (NEGATIVE); UROBILINOGEN,URINE 0.2 mg/dL (0.2-1.0)
[2024-12-30 18:00] LABS: ADD UA MICROSCOPIC NO
[2024-12-30] MEDS: cefTRIAXone 1G VIAL IVPB SCH (18:25)
[2024-12-30] MEDS ORDERED: METH4TAB3 PO (18:47)
[2024-12-30] MEDS ORDERED: AZIT250T9 PO (18:47)
--- NOTE | 2024-12-30 18:47 | ERN ---
General Chief Complaint: Other Problems Stated Complaint: NOT FEELING GOOD, LAZY BS 268 Time Seen by MD: 15:02 Time Seen by Midlevel: 15:02 Source: patient History of Present Illness Initial Comments The patient is an 89-year-old male with a past medical history of hyperlipidemia, coronary artery disease, and hypertension presenting to the emergency department for evaluation of generalized body weakness. The patient denies having a history of diabetes but according to the granddaughter who is at bedside the obtained a fingerstick glucose of 268. He is currently taking steroids. He does admit to coughing over the last couple of days but states he was prescribed cough medication for this. Allergies: Coded Allergies: No Known Drug Allergies (Verified Allergy, 04/27/12) Home Meds Active Scripts Methylprednisolone (Medrol) 4 Mg Tab.ds.pk, 1 TAB PO AD for 6 Days, #21 TAB 0 Refills 6 on day 1 then reduce by one tablet daily until gone Prov:RAKEL LUNDBERG 12/30/24 Azithromycin (Azithromycin) 250 Mg Tablet, 1 TAB PO AD for 5 Days, #6 TAB 0 R efills 2 the first day followed by 1 for days 2-5 Prov:RAKEL LUNDBERG 12/30/24 Lactulose (Lactulose) 10 Gram/15 Ml Solution, 10 GM PO DAILY for 7 Days, #100 ML Prov:CHENTE PORRAS MD 01/18/24 Acetaminophen (Tylenol) 500 Mg Tab, 500 MG PO Q6HPRN PRN for PAIN LEVEL 1 TO 5 for 5 Days, #30 TAB Prov:CHENTE PORRAS MD 10/09/22 Reported Medications Aspirin (Aspirin) 325 Mg Tablet, 325 MG PO DAILY, TAB 05/08/22 Omeprazole (Omeprazole) 40 Mg Capsule.dr, 40 MG PO DAILY, CAP 05/08/22 Simvastatin (Simvastatin) 20 Mg Tablet, 20 MG PO HS, TAB 05/08/22 Metoprolol Succinate (Metoprolol Succinate) 25 Mg Tab.er.24h, 25 MG PO HS, TAB 05/08/22 Losartan Potassium (Losartan Potassium) 25 Mg Tablet, 25 MG PO DAILY, TAB 03/21/22 Fexofenadine HCl (Jordana Allergy) 180 Mg Tablet, 180 MG PO DAILY, TAB 03/19/22 Past Medical History Past Medical History: Diabetes-Type I, High Cholesterol, Heart Disease, Hypertension, [place] Past Surgical History: Other, Unknown Surgical History Other: CARDIAC STENT, KNEE Social History Social History: Negative, Lives with family ROS Dictation CONSTITUTIONAL: Negative except for HPI HEAD/FACE: Negative except for HPI EENT: Negative except for HPI RESPIRATORY: Negative except for HPI GASTROINTESTINAL/ABDOMINAL: Negative except for HPI GENITOURINARY: Negative except for HPI MUSCULOSKELETAL: Negative except for HPI INTEGUMENTARY: Negative except for HPI NEUROLOGICAL/PSYCH: Negative except for HPI HEMATOLOGIC/LYMPHATIC: Negative except for HPI All Systems Negative, Except as noted above. 13 point review of systems assessed and all negative except for above. Physical Exam Physical Exam Dictation Vital Signs reviewed General Appearance: Alert, oriented x 3, no acute distress, well developed, nourished. Head and Face: non-traumatic. Eyes: PERRL, pink conjunctivas, eyelid no trauma, anterior chamber with arcus senilis. Ears: Pinnas intact and no signs of trauma or erythema ear canals clear and no discharge TM no erythema Nose: No discharge, no bleeding. Oropharynx: Mouth normal, tongue pink, pharynx clear,no erythema, tonsils no exudates, no abscesses noted, mucous membrane moist Neck: Supple, non-tender, no thyromegaly, no masses, no JVD, no bruits Breast:Deferred Chest:No tenderness, no crepitus, no paradoxical movement, no retractions Lungs:Clear, well-ventilated, symmetric, no rales, no wheezing, no rhonchi, no stridor, good breath sounds bilaterally Heart: Regular rate, regular rhythm, no murmur, no gallops Vascular: no peripheral edema, Abdomen: Soft, positive bowel sounds, nondistended, no guarding, nontender, no rebound, no masses no hepatomegaly, no splenomegaly, no Ellis's sign, no hernias. Rectal: Deferred Genital: Deferred Neurological: Normal speech, motor function intact, sensory function intact Musculoskeletal: Neck nontender, full range of motion, back nontender, full range of motion, Extremities: nontender, full range of motion Skin: Color pink, dry, no turgor, no rash, no lacerations, no abrasions, no contusions. Lymphatic: Deferred Results Laboratory and Microbiology Lab and Micro Result Laboratory Tests Test 12/30/24 15:13 12/30/24 17:45 White Blood Count 8.3 K/uL (4.8-10.8) Red Blood Count 4.03 MIL/uL (4.50-6.20) L Hemoglobin 13.5 g/dL (14.0-18.0) L Hematocrit 40.4 % (42-54) L Mean Corpuscular Volume 100.2 fL (79-99) H Mean Corpuscular Hemoglobin 33.5 pg (27.0-33.0) H Mean Corpuscular Hemoglobin Concent 33.4 g/dL (32.0-36.0) Red Cell Distribution Width 13.8 % (11.0-15.5) Platelet Count 187 K/uL (130-400) Mean Platelet Volume 10.4 fL (7.5-10.5) Immature Granulocyte % (Auto) 0.4 % (0-1) Neutrophils (%) (Auto) 61.4 % (40.0-77.0) Lymphocytes (%) (Auto) 19.5 % (21.0-51.0) L Monocytes (%) (Auto) 11.7 % (3.0-13.0) Eosinophils (%) (Auto) 6.4 % (0.0-8.0) Basophils (%) (Auto) 0.6 % (0.0-5.0) Neutrophils # (Auto) 5.1 K/uL (1.8-7.7) Lymphocytes # (Auto) 1.6 K/uL (1.0-4.8) Monocytes # (Auto) 1.0 K/uL (0.1-1.0) Eosinophils # (Auto) 0.53 K/uL (0.00-0.70) Basophils # (Auto) 0.05 K/uL (0.00-0.20) Absolute Immature Granulocyte (auto 0.03 K/uL (0-1) Nucleated Red Blood Cells 0.0 % (0.0-0.19) Sodium Level 140 mmol/L (136-145) Potassium Level 4.5 mmol/L (3.5-5.1) Chloride Level 106 mmol/L (101-111) Carbon Dioxide Level 31 mmol/L (21-32) Blood Urea Nitrogen 23 mg/dL (7-18) H Creatinine 1.0 mg/dL (0.5-1.3) Glomerular Filtration Rate Calc 72 mL/min (>90) Random Glucose 99 mg/dL (70-105) Total Calcium 8.5 mg/dL (8.5-10.1) Magnesium Level 2.10 mg/dL (1.80-2.40) Total Creatine Kinase 63 U/L (21-232) # Troponin I High Sensitivity 15.1 ng/L (4-75) B-Type Natriuretic Peptide 165 pg/mL (0-100) H Urine Color LIGHT-YELLOW (YELLOW) Urine Appearance CLEAR (CLEAR) Urine pH 6.0 (5.0-8.0) Urine Specific [place] 1.019 (1.001-1.031) Urine Protein NEGATIVE mg/dL (NEGATIVE) Urine Glucose (UA) NEGATIVE mg/dL (NEGATIVE) Urine Ketones NEGATIVE mg/dL (NEGATIVE) Urine Occult Blood NEGATIVE (NEGATIVE) Urine Nitrate NEGATIVE (NEGATIVE) Urine Bilirubin NEGATIVE mg/dL (NEGATIVE) Urine Urobilinogen 0.2 mg/dL (0.2-1.0) Urine Leukocyte Esterase NEGATIVE [place]/uL Labs Reviewed?: Yes MDM MDM: The patient is an 89-year-old male with a past medical history of hyperlipidemia, coronary artery disease, and hypertension presenting to the em ergency department for evaluation of generalized body weakness. The patient denies having a history of diabetes but according to the granddaughter who is at bedside the obtained a fingerstick glucose of 268. He is currently taking steroids. He does admit to coughing over the last couple of days but states he was prescribed cough medication for this. Initial vital signs are remarkable for a heart rate of 57 beats per minute. Blood pressure stable at 130 7/68. O2 saturation is 96% on room air. The patient was bradycardic but does take metoprolol. Otherwise the patient was neurologically intact. On physical examination there is some mild expiratory wheezing to the right lower lung field. CBC shows no leukocytosis. There is mild anemia with a hemoglobin of 13.5. No thrombocytopenia noted. Chemistries unremarkable. Urinalysis does not show any evidence of infection. Chest x-ray shows mild bilateral pulmonary infiltrates which may be related to pulmonary vascular congestion with possible superimposed pneumonitis. The patient was observed in the emergency department for over 2 hours and has remained stable. For on repeat examination the patient reports feeling significantly improved after the DuoNeb administration. Discussed lab and imaging findings with the patient. We will treat for pneumonitis at this time. I did offer admission for further observation and management however the patient refused states he would like to be discharged home. Patient was given 1 g of Rocephin in the emergency department and will be discharged home on azithromycin and a Medrol pack. Differential diagnosis: Acute bronchitis, pneumonia, pneumonitis, There are no social concerns with this patient. Prescription drug management Prescriptions will include: Medrol pack, azithromycin Medical management and examination interpretation discussions were had by me with other qualified healthcare professionals as indicated for the patient's care. ED Course Orders Procedure Category Date Status Time 12 Lead Ekg Tracing- EKG 12/30/24 Resulted Technical 15:02 Cbc With Differential LAB 12/30/24 Complete 15:02 Basic Metabolic Panel LAB 12/30/24 Complete 15:02 B-Type Natriuretic LAB 12/30/24 Complete Peptide 15:02 Magnesium LAB 12/30/24 Complete 15:02 Chest 1vw RAD 12/30/24 Resulted 15:02 Urinalysis Profile LAB 12/30/24 Complete 15:02 Ipratropium/Albuterol PHA 12/30/24 Complete Neb (Duoneb) 15:30 Cardiac Panel LAB 12/30/24 Complete 15:13 Ceftriaxone 1g Vial PHA 12/30/24 In Process (Rocephine 1g Inj) 18:00 Morphine 2mg Syg PHA 12/30/24 In Process (Morphine 2mg Syg) 19:00 Ondansetron 4mg Inj PHA 12/30/24 In Process (Zofran 4mg Inj) 19:00 Current Medications Medications (Trade) Dose Ordered Sig/Itz Route PRN Reason Start Time Stop Time Status Last Admin Dose Admin Albuterol (DUOneb) 1 UDVIAL ONCE ONCE IH 12/30/24 15:30 12/30/24 15:31 DC 12/30/24 15:14 Ceftriaxone Sodium (ROCEphine 1G INJ) 1 gm ONCE IVPB 12/30/24 18:00 12/30/24 22:30 12/30/24 18:25 Morphine Sulfate (morPHINE 2MG SYG) 2 mg ONCE IVP 12/30/24 19:00 12/30/24 23:00 Ondansetron HCl (zoFRAN 4MG INJ) 4 mg ONCE IVP 12/30/24 19:00 12/30/24 23:00 Vital Signs Date Time Temp Pulse Resp B/P (MAP) Pulse Ox O2 Delivery O2 Flow Rate FiO2 12/30/24 18:16 98.4 54 16 137/68 97 Room Air* 0 12/30/24 16:30 98.4 50 17 133/65 96 Room Air* 0 21 12/30/24 15:15 98.4 77 16 167/65 97 Room Air* 0 12/30/24 15:13 59 18 12/30/24 14:59 97.5 57 16 137/68 96 Room Air 0 [facility] [address] [place] [address] IMAGING REPORT Signed PATIENT: VY CALDWELL MR#: [id number] : 1935 SEX: M AGE: 89 LOCATION: [facility] ORDER 150 STATUS: REG REPORT#: [id number] SERVICE 150 REASON: sob ORDERING PHYSICIAN: RAKEL LUNDBERG PROCEDURE: CXR1VW - CHEST 1VW CHEST 1VW HISTORY: Shortness of breath COMPARISON: 09/28/2022 FINDINGS: A frontal projection of the chest was obtained. Mild bilateral pulmonary infiltrates are seen may be related to mild pulmonary vascular congestion with possible superimposed pneumonitis. The heart is borderline enlarged. Degenerative changes are seen. No evidence of aortic calcification is seen. IMPRESSION: 1. Mild bilateral pulmonary infiltrates are seen may be related to mild pulmonary vascular congestion with possible superimposed pneumonitis. DICTATED BY: STEFANO OSMAN MD DATE: 12/30/241642 ELECTRONICALLY SIGNED BY: STEFANO OSMAN MD DATE: 12/30/241647 DX & DISP Disposition: Discharge Departure Impression: Primary Impression: Pneumonitis Condition: Stable Scripts Methylprednisolone (Medrol) 4 Mg Tab.ds.pk 1 TAB PO AD for 6 Days, #21 TAB 0 Refills 6 on day 1 then reduce by one tablet daily until gone Prov: RAKEL LUNDBERG 12/30/24 Azithromycin (Azithromycin) 250 Mg Tablet 1 TAB PO AD for 5 Days, #6 TAB 0 Refills 2 the first day followed by 1 for days 2-5 Prov: RAKEL LUNDBERG 12/30/24 Referrals: LIMA LUNDBERG MD (PCP) Time of Disposition: 18:46 I have reviewed the case, and I agree with, Diagnosis and Plan I performed the substantive portion of the visit. I have reviewed and personally made and approve the management plan that is documented in the note by myself or the CEE. I acknowledge for responsibility for the patient's management plan. RAKEL LUNDBERG December 30, 2024 18:47
[2024-12-30] MEDS ORDERED: ondanSETRON 4MG INJ IVP SCH (19:00)
[2024-12-30] MEDS ORDERED: morPHINE 2 MG SYG IVP SCH (19:00)
[2024-12-30 19:20] VITALS: BP 128/70; PULSE 59; RESP 18; TEMP 98.5; O2SAT 97
== END 2024-12-30 19:33 | disposition home or self-care (01) ==
LOC: EDH 14:55
DX: J98.4 Other disorders of lung (principal); E11.9 Type 2 diabetes mellitus without complications; E78.00 Pure hypercholesterolemia, unspecified; I11.9 Hypertensive heart disease without heart failure; I25.10 Atherosclerotic heart disease of native coronary artery without angina pectoris; Z79.82 Long term (current) use of aspirin; Z79.899 Other long term (current) drug therapy; Z95.5 Presence of coronary angioplasty implant and graft; Z98.890 Other specified postprocedural states
CPT/HCPCS: 99285; 96374; 71045; 82550; 83735; 84484; 80048; 83880; 85025; 81003; 36415; 93005; 94640; J0696